=== PATIENT | male | born 1995 | race Caucasian/White ===

== ENCOUNTER 2019-05-29 04:52 | Emergency (ER) | payer OTHER ==
[2019-05-29] MEDS ORDERED: NS 0.9% 1000 ML** 1,000 ML IV ONE ×2 (05:48→06:24)
[2019-05-29] MEDS ORDERED: Ondansetron INJ* 2 MG/ML VIAL IV ONE (05:48)
--- NOTE | 2019-05-29 05:48 | ED ---
Nausea/Vomiting/Diarrhea HPI - HPI Summary HPI Summary: Patient is a 23-year-old male who presents to emergency department for vomiting and diarrhea and diffuse abdominal pain that started early this morning. Patient denies associated symptoms of hematemesis or blood in stools, fever, cough, sore throat, rash, urinary symptoms. Patient is a student [employer] and traveled recently for a hockey game. Patient has no past medical history. Symptoms are moderate in severity. No current modifying factors. - History of Current Complaint Chief Complaint: EDNauseaVomitDiarrh Stated Complaint: THROWING UP/ABD PAIN/BACK PAIN PER MOTHER Time Seen by Provider: 05/29/19 05:36 Hx Obtained From: Patient Pain Intensity: 6 - Allergies/Home Medications Allergies/Adverse Reactions: Allergies Allergy/AdvReac Type Severity Reaction Status Date / Time No Known Allergies Allergy Verified 05/29/19 04:58 PMH/Surg Hx/FS Hx/Imm Hx Previously Healthy: Yes Infectious Disease History: No Infectious Disease History: Reports: Traveled Outside the in Last 30 Days - Social History Alcohol Use: Occasionally Substance Use Type: Reports: None Smoking Status (MU): Never Smoked Tobacco Review of Systems Positive: Chills. Negative: Fever ENT: Negative Cardiovascular: Negative Respiratory: Negative Positive: Abdominal Pain, Vomiting, Diarrhea, Nausea Genitourinary: Negative Negative: dysuria Skin: Negative Negative: Rash Neurological: Negative All Other Systems Reviewed And Are Negative: Yes Physical Exam Triage Information Reviewed: Yes Vital Signs On Initial Exam: Initial Vitals Temp Pulse Resp BP Pulse Ox 98.6 F 88 20 150/71 100 05/29/19 04:55 05/29/19 04:55 05/29/19 04:55 05/29/19 04:55 05/29/19 04:55 Vital Signs Reviewed: Yes Appearance: Positive: Well-Appearing - Pt. lying in bed in NAD. Mother present. Skin: Positive: Warm, Dry Head/Face: Positive: Normal Head/Face Inspection Eyes: Positive: Normal, EOMI Neck: Positive: Supple Respiratory/Lung Sounds: Positive: Clear to Auscultation, Breath Sounds Present Cardiovascular: Positive: Normal, RRR Abdomen Description: Positive: Other: - Abd. is soft with minimal diffuse tenderness. No rebound or guarding.. Negative: CVA Tenderness (R), CVA Tenderness (L) Neurological: Positive: Normal, CN Intact II-III Psychiatric: Positive: Affect/Mood Appropriate Procedures - Sedation Patient Received Moderate/Deep Sedation with Procedure: No Diagnostics - Vital Signs Vital Signs Temp Pulse Resp BP Pulse Ox 05/29/19 04:55 98.6 F 88 20 150/71 100 - Laboratory Result Diagrams: 05/29/19 05:56 05/29/19 05:52 Lab Statement: Any lab studies that have been ordered have been reviewed, and results considered in the medical decision making process. Naus/Vom/Diarrhea Course/Dx - Course Course Of Treatment: Patient with vomiting and diarrhea. He is afebrile with stable vital signs. He has a benign abdominal exam without reproducible pain. Suspect viral gastroenteritis recent travel. We will obtain basic labs and give IV fluids and Zofran. Labs. show minimal elevation in WBC and cr. Pt. given a second liter of fluids. Will try PO challenge. 0715: Pt. resting comfortably. Tolerating PO fluids. Results discussed. Will dc home with zofran. Clear liquid diet x 24 hours. To f.u with [facility] on friday. To reutrn to ER for increased pain, high fever, or uncontrollable vomitign, or if concernd. Pt. and mother understand and agree with plan. - Differential Dx/Diagnosis Differential Diagnoses - Male: Appendicitis, Gastroenteritis (Viral), Gastroenteritis (Bacterial), Dehydration Provider Diagnosis: Gastroenteritis Condition At Discharge: Improved Discharge ED - Sign-Out/Discharge Documenting (check all that apply): Patient Departure - Discharge Plan Condition: Improved Disposition: HOME Prescriptions: Ondansetron TAB* [Zofran 4 MG Tab*] 4 mg PO Q6H PRN #12 tab PRN Reason: Nausea Patient Education Materials: Gastroenteritis (ED) Referrals: [facility] [Outside] Additional Instructions: Follow up with [facility] on Friday if symptoms persist Zofran as directed Tylenol for discomfort as directed Increase fluids and rest Clear liquid diet x 24 hours Return to ER for increased abdominal pain, high fever, uncontrollable vomiting, or if concerned - Billing Disposition and Condition Condition: IMPROVED Disposition: Home - Attestation Statements Provider Attestation: I was available for consultation for this patient. I did not evaluate the patient or participate in any medical decision making or disposition decisions unless I am specifically named in the chart as having consulted on the patient. If I have consulted on the patient, please see my own ED note on the patient encounter. Niels Cummings MD
[2019-05-29 06:04] LABS: ABS Lymphocytes 0.2 10^3/ul (1.0-4.8); ABS Neutrophils 9.9 10^3/ul (1.5-7.7); Eosinophil % 0.4 %; Hematocrit 46 % (42-52); Hemoglobin 15.4 g/dL (14.0-18.0); Lymphocyte % 1.9 %; Mean Corpuscular HGB Conc 33 g/dL (31-36); Mean Corpuscular Hemoglobin 30 pg (27-31); Mean Corpuscular Volume 89 fL (80-94); Mean Platelet Volume 8.3 fL (7.4-10.4); Platelet Count 197 10^3/uL (150-450); Red Blood Count 5.23 10^6 /uL (4.18-5.48); Red Cell Distribution Width 13 % (10-15); White Blood Count 11.1 10^3/uL (3.5-10.8)
[2019-05-29 06:22] LABS: Albumin 5.1 g/dL (3.2-5.2); BUN/Creatinine Ratio 13.5 (8-20); C Reactive Protein 3.36 mg/L (<8.01); Calcium 10.2 mg/dL (8.6-10.3); EGFR African American 87.4 (>60); EGFR Non-African American 72.2 (>60); Globulin 2.5 g/dL (2-4); Potassium 4.2 mmol/L (3.5-5.0); Total Bilirubin 1.6 mg/dL (0.2-1.0); Total Protein 7.6 g/dL (6.4-8.9)
[2019-05-29 07:47] VITALS: BP 125/42
== END 2019-05-29 09:38 | disposition home or self-care (01) ==
LOC: ED 04:52
DX: K52.9 Noninfective gastroenteritis and colitis, unspecified (principal)
CPT/HCPCS: 36415; 80053; 83690; 85025; 86140; 96361; 96374; 99283; J2405